=== PATIENT | male | born 1985 | race Two or more races ===

== ENCOUNTER 2021-07-30 22:11 | Emergency (ER) | payer SELFPAY ==
[~2021-07-30] VITALS: Ht 170.2 cm; Wt 68.0 kg
[2021-07-30 22:13] VITALS: BP 142/78
[2021-07-30] MEDS ORDERED: KETOROLAC 60MG/2ML VIAL IM ONE (23:30)
== END 2021-07-31 00:28 | disposition left against medical advice (07) ==
LOC: ER 22:11
DX: Z53.21 Procedure and treatment not carried out due to patient leaving prior to being seen by health care provider (principal)

== ENCOUNTER 2021-07-31 04:01 | Emergency (ER) | payer SELFPAY ==
[~2021-07-31] VITALS: Ht 160 cm; Wt 73.0 kg
[2021-07-31] MEDS ORDERED: IBUPROFEN 600MG TABLET PO STA (05:32)
[2021-07-31 06:10] LABS: BASOPHILS % 0.8 % (0.0-2.0); EOSINOPHILS % 3.2 % (0.0-5.0); HEMATOCRIT. 37.9 % (42.0-52.0); HEMOGLOBIN. 13.1 g/dL (14.0-18.0); MEAN CORPUSCULAR HEMOGLOBIN 32.2 pg (28.0-32.0); MEAN CORPUSCULAR VOLUME 93.4 fL (80.0-94.0); MEAN PLATELET VOLUME 7.4 fl (7.4-10.4); MONOCYTES % 11.4 % (2.0-8.0); NEUTROPHILS % 53.6 % (40.0-76.0); PLATELET 260 x1000/uL (130-400); RED BLOOD CELL COUNT 4.05 mill/uL (4.7-6.1); RED CELL DISTRIBUTION WIDTH 13.9 % (11.6-14.6)
[2021-07-31 06:26] LABS: CLARITY URINE CLEAR (CLEAR); COLOR URINE YELLOW (YELLOW); KETONES URINE NEGATIVE (NEGATIVE); LEUKOCYTE ESTERASE URINE NEGATIVE (NEGATIVE); NITRITE URINE NEGATIVE (NEGATIVE); OCCULT BLOOD URINE NEGATIVE (NEGATIVE); PROTEIN URINE NEGATIVE (NEGATIVE); SPECIFIC GRAVITY URINE 1.014 (1.005-1.030)
[2021-07-31 06:27] LABS: CHLORIDE 109 mEq/L (98-107)
[2021-07-31 06:37] LABS: ETHANOL BLOOD < 10 mg/dL
[2021-07-31 06:52] LABS: *BARBITURATES SCREEN URINE NEGATIVE (NEGATIVE)
[2021-07-31 06:53] LABS: *AMPHETAMINES SCREEN URINE PRESUMTIVE POSITIVE (NEGATIVE); *BENZODIAZEPINES SCREEN URINE NEGATIVE (NEGATIVE); *COCAINE SCREEN URINE NEGATIVE (NEGATIVE); METHADONE URINE SCREEN NEGATIVE (NEGATIVE); OPIATES URINE SCREEN NEGATIVE (NEGATIVE); PHENCYCLIDINE URINE SCREEN NEGATIVE (NEGATIVE)
[2021-07-31 06:54] LABS: CANNABINOID URINE SCREEN NEGATIVE (NEGATIVE)
[2021-07-31 07:21] VITALS: BP 121/66
== END 2021-07-31 07:22 | disposition home or self-care (01) ==
LOC: ER 04:01
DX: R00.2 Palpitations (principal); T43.621A Poisoning by amphetamines, accidental (unintentional), initial encounter; Y92.89 Other specified places as the place of occurrence of the external cause
CPT/HCPCS: 36415; 71045; 80053; 80305; 80320; 81003; 85025; 99284; G0480